=== PATIENT | male | born 1995 | race Caucasian/White ===

== ENCOUNTER 2016-10-05 12:59 | Observation (INO) | payer OTHER ==
[2016-10-05 13:00] VITALS: BMI 20.9
[2016-10-05 13:22] VITALS: BP 129/70; PULSE 53; RESP 19; TEMP 98.4; O2SAT 99
[2016-10-05] MEDS ORDERED: Morphine 4 mg/ml ISec IVP STA (13:27)
[2016-10-05] MEDS ORDERED: Sodium Chloride 0.9% 1,000 ML IV STA (13:27)
--- NOTE | 2016-10-05 13:31 | ED PDOC ---
Arrival/HPI - General Chief Complaint: GI Problem Time Seen by Provider: 10/05/16 13:15 Historian: Patient - History of Present Illness Narrative History of Present Illness (Text): 10/05/16 13:28 21 year old male who denies past medical history presents to the emergency department with mid abdominal pain, nausea, and vomiting since last night. Patient states he vomited "every 10 minutes" until this morning. He also reports diaphoresis. Patient reports last bowel movement last night which was loose. Denies urinary symptoms. Patient states he has never seen a PMD. Time/Duration: 24 hours Symptom Onset: Sudden Symptom Course: Unchanged Severity Level: Moderate Modifying Factors (Text): None Context: Home Past Medical History - Provider Review Nursing Documentation Reviewed: Yes - Infectious Disease Hx of Infectious Diseases: None - Cardiac Hx Cardiac Disorders: Yes Hx Cardiac Arrhythmia: Yes Other/Comment: syncope - Pulmonary Hx Respiratory Disorders: Yes Hx Asthma: Yes - Neurological Hx Neurological Disorder: No - HEENT Hx HEENT Disorder: No - Renal Hx Renal Disorder: No - Endocrine/Metabolic Hx Endocrine Disorders: No - Hematological/Oncological Hx Blood Disorders: No - Integumentary Hx Dermatological Disorder: No - Musculoskeletal/Rheumatological Hx Musculoskeletal Disorders: No - Gastrointestinal Hx Gastrointestinal Disorders: No - Genitourinary/Gynecological Hx Genitourinary Disorders: No - Psychiatric Hx Psychophysiologic Disorder: No Hx Substance Use: No - Anesthesia Hx Anesthesia: No Family/Social History - Physician Review Nursing Documentation Reviewed: Yes Family/Social History: Unknown Family HX Smoking Status: Never Smoked Hx Alcohol Use: Yes Hx Substance Use: No Allergies/Home Meds Allergies/Adverse Reactions: Allergies No Known Allergies Allergy (Verified 10/05/16 13:19) Home Medications: Home Meds Medication Instructions Recorded Confirmed No Known Home Med 08/23/15 10/05/16 Review of Systems - Physician Review All systems were reviewed & negative as marked: Yes - Review of Systems Gastrointestinal: Abdominal Pain, Nausea, Vomiting Genitourinary Male: absent: Dysuria, Hematuria Physical Exam Vital Signs Reviewed: Yes Vital Signs Temp Pulse Resp BP Pulse Ox 10/05/16 13:18 98.4 F 53 L 19 129/70 99 Temperature: Afebrile Blood Pressure: Normal Pulse: Bradycardic Respiratory Rate: Normal Appearance: Positive for: Well-Appearing, Non-Toxic, Uncomfortable Pain Distress: Moderate Mental Status: Positive for: Alert and Oriented X 3 - Systems Exam Head: Present: Atraumatic, Normocephalic Pupils: Present: PERRL Extroacular Muscles: Present: EOMI Conjunctiva: Present: Normal Mouth: Present: Moist Mucous Membranes Neck: Present: Normal Range of Motion Respiratory/Chest: Present: Clear to Auscultation, Good Air Exchange. No: Respiratory Distress, Accessory Muscle Use Cardiovascular: Present: Regular Rate and Rhythm, Normal S1, S2. No: Murmurs Abdomen: Present: Normal Bowel Sounds, Other (Pain reproducible with stretcher movement). No: Tenderness, Distention Back: Present: Normal Inspection Upper Extremity: Present: Normal Inspection. No: Cyanosis, Edema Lower Extremity: Present: Normal Inspection. No: Edema Neurological: Present: GCS=15, CN II-XII Intact, Speech Normal Skin: Present: Warm, Dry, Normal Color. No: Rashes Psychiatric: Present: Alert, Oriented x 3, Normal Insight, Normal Concentration Medical Decision Making ED Course and Treatment: Impression: 21 year old male who denies past medical history presents to the emergency department with mid abdominal pain, nausea, and vomiting since last night. Differential Diagnosis included but are not limited to: Appendicitis vs gastritis Plan: -- CT Abdomen/Pelvis -- Morphine, Pepcid, Zofran -- Labs -- Reassess and disposition Prior Visits: Notes and results from previous visits were reviewed. Patient last seen in the ED on 05/16/15 for abdominal pain and discharged home. Progress Note 10/05/16 16:42 Patient is feeling better. Labs and CT reviewed. Patient to be discharged with Rx and follow up instructions. - Lab Interpretations Lab Results: 10/05/16 13:30 10/05/16 13:30 Lab Results 10/05/16 13:30: WBC 11.1 H D, RBC 5.10, Hgb 14.8, Hct 42.7, MCV 83.7, MCH 29.0, MCHC 34.7, RDW 13.1, Plt Count 258, MPV 11.0, Gran % 88.4 H, Lymph % (Auto) 7.5 L, [place] % (Auto) 4.1, Eos % (Auto) 0.0 L, Baso % (Auto) 0.0, Gran # 9.84 H, Lymph # 0.8 L, Lincoln # 0.5, Eos # 0.0, Baso # 0.00, PT 11.6, INR 1.07, APTT 25.9 , Sodium 138, Potassium 4.3, Chloride 97 L, Carbon Dioxide 27, Anion Gap 18, BUN 11, Creatinine 1.1, Est GFR ( Amer) > 60, Est GFR (Non-Af Amer) > 60 , Random Glucose 120 H, Calcium 9.5, Total Bilirubin 0.9, AST 56, ALT 57 H, Alkaline Phosphatase 84, Total Protein 8.5 H, Albumin 4.8, Globulin 3.7, Albumin /Globulin Ratio 1.3, Amylase 166 H, Lipase 562 H - RAD Interpretation Radiology Orders: 10/05/16 13:27 ABD PELVIS PO & IV CONTRAST [CT] Stat - Medication Orders Current Medication Orders: Discontinued Medications Famotidine (Pepcid) 20 mg IVP STAT STA Stop: 10/05/16 13:28 Last Admin: 10/05/16 13:48 Dose: 20 MG IVP Administration Document 10/05/16 13:48 SE (Rec: 10/05/16 13:48 SE [id number]) Charges for Administration # of IVP Administrations 1 Sodium Chloride (Sodium Chloride 0.9%) 1,000 mls @ 1,000 mls/hr IV .Q1H STA Stop: 10/05/16 14:26 Last Admin: 10/05/16 13:48 Dose: 1,000 MLS/HR eMAR Start Stop Document 10/05/16 13:48 SE (Rec: 10/05/16 13:48 SE [id number]) Intravenous Solution Start Date 10/05/16 Start Time 13:48 Morphine Sulfate (Morphine) 4 mg IVP STAT STA Stop: 10/05/16 13:28 Last Admin: 10/05/16 13:48 Dose: 4 MG MAR Pain Assessment Document 10/05/16 13:48 SE (Rec: 10/05/16 13:48 SE [id number]) Pain Reassessment Is this a pain reassessment? No Sleep Is patient sleeping during reassessment? No Presence of Pain Presence of Pain Yes IVP Administration Document 10/05/16 13:48 SE (Rec: 10/05/16 13:48 SE [id number]) Charges for Administration # of IVP Administrations 1 Ondansetron HCl (Zofran Inj) 4 mg IVP STAT STA Stop: 10/05/16 13:28 Last Admin: 10/05/16 13:48 Dose: 4 MG IVP Administration Document 10/05/16 13:48 SE (Rec: 10/05/16 13:48 SE [id number]) Charges for Administration # of IVP Administrations 1 ED OBSERVATION Discharge: Yes Date of observation admission: 10/05/16 Time of observation admission: 13:33 - Observation admission statement Patient is being placed in observation because:: abdominal pain - Goals of Observation Goals of observation are:: monitor patient's response to treatments in in the Emergency department - Progress Note Progress Note: 10/05/16 13:33 On initial exam, patient in moderate pain distress. 10/05/16 15:33 Patient with no new complaints, CT pending. - Scribe Statement The provider has reviewed the documentation as recorded by the Elidia Vicente Provider Scribe Attestation: All medical record entries made by the Elidia were at my direction and personally dictated by me. I have reviewed the chart and agree that the record accurately reflects my personal performance of the history, physical exam, medical decision making, and the department course for this patient. I have also personally directed, reviewed, and agree with the discharge instructions and disposition. Disposition/Present on Arrival - Present on Arrival Any Indicators Present on Arrival: No History of DVT/PE: No History of Uncontrolled Diabetes: No Urinary Catheter: No History of Decub. Ulcer: No History Surgical Site Infection Following: None - Disposition Have Diagnosis and Disposition been Completed?: Yes Diagnosis: Abdominal pain, Pancreatitis Disposition: HOME/ ROUTINE Disposition Time: 16:40 Patient Plan: Discharge Condition: IMPROVED
[2016-10-05] MEDS ORDERED: Iohexol 300 100 ML IJ ONE (13:49)
[2016-10-05 13:55] LABS: ADD MANUAL DIFF? NO
[2016-10-05 14:02] LABS: GRAN # 9.84 (1.4-6.5); GRAN % 88.4 % (50.0-68.0); HEMATOCRIT 42.7 % (42.0-52.0); LYMPH # 0.8 (1.2-3.4); LYMPH % 7.5 % (22.0-35.0); MEAN CELL VOLUME 83.7 fL (80.0-105.0); MEAN CORPUSCULAR HGB CONC 34.7 g/dl (31.0-37.0); MONO # 0.5 (0.1-0.6); MONO % 4.1 % (1.0-6.0); PLATELET COUNT 258 10^3/uL (120.0-450.0); RED CELL DISTRIBUTION WIDTH 13.1 % (11.5-14.5); WHITE BLOOD COUNT 11.1 10^3/ul (4.5-11.0)
[2016-10-05 14:07] LABS: ALB/GLOB RATIO 1.3 (1.1-1.8); ALKALINE PHOSPHATASE 84 U/L (38-133); ALT/SGPT 57 U/L (7-56); AMYLASE 166 U/L (35-125); AST/SGOT 56 U/L (15-59); BILIRUBIN,TOTAL 0.9 mg/dL (0.2-1.3); BLOOD UREA NITROGEN 11 mg/dL (7-21); CALCIUM 9.5 mg/dL (8.4-10.5); CARBON DIOXIDE 27 mmol/L (21-33); CHLORIDE 97 mmol/L (98-107); GFR AFRICAN-AMERICAN > 60; GLUCOSE,RANDOM 120 mg/dL (70-110); LIPASE 562 U/L (23-300); POTASSIUM 4.3 mmol/L (3.6-5.0); SODIUM 138 mmol/L (132-148); TOTAL PROTEIN 8.5 g/dL (5.8-8.3)
[2016-10-05 14:13] LABS: INR 1.07 (0.93-1.08); PARTIAL THROMBOPLASTIN TIME 25.9 Seconds (23.7-30.8)
[2016-10-05] MEDS ORDERED: Iohexol 350 MG/100 ML VIAL ONE (15:13)
[2016-10-05 16:18] LABS: URINE BILIRUBIN NEGATIVE (NEGATIVE); URINE BLOOD NEGATIVE (NEGATIVE); URINE GLUCOSE (UA) NEGATIVE (NEGATIVE); URINE KETONE NEGATIVE (NEGATIVE); URINE LEUKOCYTE ESTERASE TRACE Leu/uL (NEGATIVE); URINE PROTEIN TRACE mg/dL (<30 mg/dL); URINE UROBILINOGEN 0.2 E.U./dL (<1 E.U./dL)
[2016-10-05 16:24] LABS: URINE APPEARANCE CLEAR (CLEAR); URINE COLOR YELLOW (YELLOW)
[2016-10-05 16:31] LABS: URINE AMORPHOUS SEDIMENT MODERATE; URINE BACTERIA RARE (NEG); URINE EPITHELIAL CELLS 0 - 2 /hpf (0-5); URINE RBC 0 - 2 /hpf (0-2); URINE WBC 0 - 2 /hpf (0-6)
--- NOTE | 2016-10-05 16:35 | CT ---
PROCEDURE: CT Abdomen and Pelvis with contrast HISTORY: lower abdominal pain COMPARISON: None. TECHNIQUE: Contrast dose: 100 cc of Omnipaque 300 Radiation dose: Total exam DLP = 290 mGy-cm. This CT exam was performed using one or more of the following dose reduction techniques: Automated exposure control, adjustment of the mA and/or kV according to patient size, and/or use of iterative reconstruction technique. FINDINGS: LOWER THORAX: Unremarkable. LIVER: Unremarkable. No gross lesion or ductal dilatation. GALLBLADDER AND BILE DUCTS: Unremarkable. PANCREAS: Unremarkable. No gross lesion or ductal dilatation. SPLEEN: Unremarkable. ADRENALS: Unremarkable. No mass. KIDNEYS AND URETERS: Unremarkable. No hydronephrosis. No solid mass. VASCULATURE: Unremarkable. No aortic aneurysm. BOWEL: Unremarkable. No obstruction. No gross mural thickening. APPENDIX: Normal appendix. PERITONEUM: Unremarkable. No free fluid. No free air. LYMPH NODES: Unremarkable. No enlarged lymph nodes. BLADDER: Unremarkable. REPRODUCTIVE: Unremarkable. BONES: No acute fracture. OTHER FINDINGS: None. IMPRESSION: Unremarkable contrast enhanced CT of the abdomen and pelvis.
== END 2016-10-05 16:44 | disposition home or self-care (01) ==
LOC: ED 12:59 → EROBSV 13:36
PROVIDERS: ADMIT Emergency Medicine; ATTEND Emergency Medicine
DX: K85.90 Acute pancreatitis without necrosis or infection, unspecified (principal); R10.9 Unspecified abdominal pain
CPT/HCPCS: 36415; 74177; 80053; 81001; 82150; 83690; 85025; 85610; 85730; 87040; 87086; 87181; 96374; 96375; 99283; G0378; J2270; J2405; J7040; Q9967